=== PATIENT | male | born 1985 | race Caucasian/White ===

== ENCOUNTER 2016-11-15 06:52 | Day surgery (SDC) | payer OTHER ==
--- NOTE | 2016-11-12 11:17 | GHP ---
[f rep st] PREOP HISTORY AND PHYSICAL DATE OF ADMISSION: 11/15/2016 HISTORY OF PRESENT ILLNESS: The patient is a 31-year-old male with no significant past medical hist ory, who was referred to us by Dr. Marr, his PCP, for a symptomatic left inguinal hernia. The titi ent noticed a bulge about 3-4 months ago. At that time, it was small and nonpainful. Recently the bulge has become more prominent and somewhat uncomfortable. The pain is worse with sneezing, coughi ng, abdominal exercising, and squatting. He is always able to reduce it. He denies problems with n ausea, vomiting, diarrhea, constipation, fevers, chills, urinary problems, chronic cough, or smoking . PAST MEDICAL HISTORY: Denies. PAST SURGICAL HISTORY: Thumb and wrist surgery. MEDICATIONS: No regular prescription medications. ALLERGIES: Codeine. FAMILY HISTORY: Noncontributory. SOCIAL HISTORY: The patient is a never tobacco smoker. He does not drink alcohol or use illicit cortes bstances. He runs and does weights about 4-5 days a week, and he has 2 children. He is . REVIEW OF SYSTEMS: Negative aside from that in the HPI. A 10-point review of systems performed. PHYSICAL EXAMINATION: GENERAL: Reveals a well-developed, well-nourished, 31-year-old male, alert a nd oriented x3 and in no acute distress. HEENT: Normocephalic, atraumatic. CHEST: Clear to auscu ltation bilaterally. CARDIAC: Regular rate and rhythm. ABDOMEN: Soft with reducible left inguina l hernia. No right inguinal hernias appreciated. : No testicular masses or tenderness. EXTREMI TIES: Warm and dry without edema. IMPRESSION: This is a 31-year-old male with an increasingly symptomatic left inguinal hernia. PLAN: To proceed with a laparoscopic left inguinal hernia repair with mesh, possible bilateral ingu inal hernia repair with mesh. Risks and options have been discussed, and he requests to proceed. T he patient seen and examined with Dr. Jonathon Delgado and Arlen Ibarra PA-C. /[id number]/MODL
--- NOTE | 2016-11-15 07:17 | PDHPUP ---
History & Physical Update H&P update statement: This history and physical update is based on an assessment of the patient which was completed after admission or registration (within 24 hours), but prior to the surgery/procedure. H&P update: H&P reviewed & patient examined, no change in patient's condition since H&P completed
[2016-11-15] MEDS ORDERED: LR 1,000 ML IV ONE (08:32)
[2016-11-15] MEDS ORDERED: LIDOCAINE 1% 2 ML INJ ID PRN (08:32)
[2016-11-15 08:43] VITALS: PULSE 57
[2016-11-15] MEDS ORDERED: ceFAZolin 2 GM/DEXTROSE 100 ML IV ONE (08:44)
[2016-11-15] MEDS ORDERED: BUPIVACAINE 0.5% 30 ML SDV ONE (09:10)
[2016-11-15] MEDS ORDERED: MIDAZOLAM 2 MG/2 ML VIAL IVP ONE (10:05)
--- NOTE | 2016-11-15 10:06 | PDANEPAE ---
ANE History of Present Illness Patient presents for inguinal hernia repair ANE Past Medical History - Cardiovascular History Hx Hypertension: No Hx Arrhythmias: No Hx Chest Pain: No Hx Coronary Artery / Peripheral Vascular Disease: No Hx CHF / Valvular Disease: No Hx Palpitations: No - Pulmonary History Hx COPD: No Hx Asthma/Reactive Airway Disease: No Hx Recent Upper Respiratory Infection: No Hx Oxygen in Use at Home: No Hx Sleep Apnea: No Sleep Apnea Screening Result - Last Documented: Negative - Neurologic History Hx Cerebrovascular Accident: No Hx Seizures: No Hx Dementia: No - Endocrine History Hx Diabetes: No - Renal History Hx Renal Disorders: No - Liver History Hx Hepatic Disorders: No - Neurological & Psychiatric Hx Hx Neurological and Psychiatric Disorders: No - Cancer History Hx Cancer: No - Congenital Disorder History Hx Congenital Disorders: No - GI History Hx Gastrointestinal Disorders: No - Other Health History Other Health History: NEG - Chronic Pain History Chronic Pain: No - Surgical History Prior Surgeries: FX REPAIR HAND R. WRISTS L. WISDOM TEETH. COLONOSCOPY ANE Review of Systems Review of Systems: - Exercise capacity Exercise capacity: >=4 METS METS (RN): 5 METS ANE Patient History - Allergies Allergies/Adverse Reactions: codeine Allergy (Severe, Verified 11/14/16 15:27) Vomiting - Home Medications Home medications: home medication list seen and reviewed Home Medications: Flonase Nasal [place] 11/14/16 [Last Taken 11/13/16] - NPO status NPO Status: no food or drink >8 hours NPO Since - Liquids (Date): 11/14/16 NPO Since - Liquids (Time): 22:30 NPO Since - Solids (Date): 11/14/16 NPO Since - Solids (Time): 21:30 - Anes Hx Anes Hx: no prior problems - Smoking Hx Smoking Status: Never smoked - Family Anes Hx Family Hx Anesthesia Complications: NONE ANE Labs/Vital Signs - Vital Signs Blood Pressure: 119/70 Heart Rate: 57 Respiratory Rate: 16 O2 Sat (%): 96 Height: 168.91 cm Weight: 63.503 kg ANE Physical Exam - Airway Neck exam: FROM Mallampati Score: Class 2 Mouth exam: normal dental/mouth exam - Pulmonary Pulmonary: no respiratory distress - Cardiovascular Cardiovascular: regular rate and rhythym - ASA Status ASA Status: I ANE Anesthesia Plan Anesthesia Plan: general endotracheal anesthesia (RBA discussec)
[2016-11-15] MEDS ORDERED: MIDAZOLAM 2 MG/2 ML VIAL ONE (10:08)
[2016-11-15] MEDS ORDERED: fentaNYL 100 MCG/2 ML INJ ONE ×2 (10:09→10:59)
[2016-11-15] MEDS ORDERED: ROCURONIUM 50 MG/5 ML VIAL ONE ×2 (10:09→10:47)
[2016-11-15] MEDS ORDERED: PROPOFOL 200 MG/20 ML VIAL ONE (10:09)
[2016-11-15] MEDS ORDERED: LIDOCAINE 2% 5 ML SDV ONE (10:09)
[2016-11-15] MEDS ORDERED: DEXAMETHASONE 4 MG/ML VIAL ONE (10:38)
[2016-11-15] MEDS ORDERED: ONDANSETRON 4 MG/2 ML VIAL ONE (10:38)
[2016-11-15] MEDS ORDERED: KETOROLAC 30 MG/1 ML SDV ONE (10:44)
[2016-11-15] MEDS ORDERED: SUGAMMADEX SODIUM 200 MG/2 ML VIAL IVP ONE (10:44)
[2016-11-15] MEDS ORDERED: NALOXONE HCL 0.4 MG/ML INJ IVP PRN (11:15)
[2016-11-15] MEDS ORDERED: fentaNYL 100 MCG/2 ML INJ IVP PRN (11:15)
[2016-11-15] MEDS ORDERED: LR 500 ML IV PRN (11:15)
[2016-11-15] MEDS ORDERED: ONDANSETRON 4 MG/2 ML VIAL IVP PRN (11:15)
--- NOTE | 2016-11-15 11:28 | POSTOPPROG ---
Post Op Note Date of Operation: 11/15/16 Surgeon: Jonathon Delgado [employer] Department Manager: Arlen Ibarra Anesthesiologist: Harleen Anesthesia: GET(General Endotracheal) Pre-op Diagnosis: Right inguinal hernia, possible BIH Post-op Diagnosis: Right inguinal hernia Indication: enlarging RIH Procedure: Laparoscopic right inguinal hernia repair with mesh Inf/Abcess present in the surg proc area at time of surgery?: No Depth: Deep Incisional (Fascial) EBL: Minimal
--- NOTE | 2016-11-15 11:51 | POSTANESTH ---
Post Anesthetic Evaluation Cardiovascular Status: Normal, Stable Respiratory Status: Normal, Stable Level of Consciousness/Mental Status: Can Participate in Eval Pain Control: Adequate, Prn Tx Ordered Nausea/Vomiting Control: Adequate, Prn Tx Ordered Complications Possibly Related to Anesthesia: None Noted
[2016-11-15 11:52] VITALS: TEMP 97.5
[2016-11-15 13:59] VITALS: BP 112/75; RESP 16; O2SAT 97
--- NOTE | 2016-11-17 12:22 | GOP ---
[f rep st] OPERATIVE REPORT DATE OF OPERATION: SURGEON: Jonathon Delgado MD ART DEPARTMENT HEAD: Arlen Ibarra PA-C. ANESTHESIOLOGIST: Dr. Canseco. PREOPERATIVE DIAGNOSIS: Symptomatic left inguinal hernia. POSTOPERATIVE DIAGNOSIS: Symptomatic left inguinal hernia. PROCEDURE PERFORMED: Laparoscopic left inguinal hernia repair with exploration of the right side. FINDINGS: Patient was found to have a large direct left inguinal hernia. There was no evidence of h erniation on the right side. ESTIMATED BLOOD LOSS: Negligible. He was taken to the recovery room in good condition. DESCRIPTION OF PROCEDURE: The patient was taken to the operating room where he received satisfactory general endotracheal anesthesia by Dr. Canseco. He was prepped and draped in usual sterile fashion. An infraumbilical incision was made and dissection was carried down to the rectus sheath, which was i ncised. A subfascial tunnel was developed in the preperitoneal space. That was dissected free with a balloon dissector which was replaced with a CO2 insufflation trocar. Two other trocars were placed in the midline under direct vision. Dirk's ligament was exposed bilaterally. The cords were mobi lized bilaterally. Peritoneum was dissected off the cord structures. There were no significant santos rect sacs. On the left, there was a moderate direct defect. This was dissected free. Its contents were reduced. Dirk's ligament was well exposed. A Covidien polyester mesh patch was introduced an d placed over the inguinal floor. It was anchored in place with AbsorbaTack, securing it to Dirk's ligament, the lacunar ligament, the anterior abdominal wall and the lateral abdominal wall outside t he internal ring. Hemostasis was assured. The right side was also explored with no evidence of karie iation. Trocars were removed under direct vision releasing the pre pneumoperitoneum. Trocar sites w ere closed with 0 Vicryl for the fascia, 4-0 Monocryl subcuticular stitch for the skin. All layers i nfiltrated with 0.5% Marcaine. /[id number]/MODL
== END 2016-11-15 13:05 | disposition home or self-care (01) ==
LOC: FSGY 06:52
PROVIDERS: ATTEND Surgery
PROC: 0YU64JZ Supplement Left Inguinal Region with Synthetic Substitute, Percutaneous Endoscopic Approach (ICD-10-PCS; principal; 2016-11-15 09:00)
DX: K40.90 Unilateral inguinal hernia, without obstruction or gangrene, not specified as recurrent (principal)
CPT/HCPCS: 49650; C1727; C1781; J0690; J1100; J1885; J2250; J2405; J2704; J3010